=== PATIENT | male | born 1995 | race Caucasian/White ===

== ENCOUNTER 2022-12-17 10:17 | Emergency (ER) | payer SELFPAY ==
[2022-12-17 10:25] VITALS: BP 139/76; PULSE 72; RESP 18; TEMP 36.6; O2SAT 99
--- NOTE | 2022-12-17 10:53 | ED.EXTPRO ---
HPI - Extremity Problem General Chief complaint: Extremity Problem,Nontraumatic Stated complaint: Can't walk in morning Time Seen by Provider: 12/17/22 10:38 Source: patient and RN notes reviewed Mode of arrival: ambulatory Limitations: no limitations History of Present Illness HPI Narrative: 27-year-old male presents with concern for bilateral Achilles pain. He denies injury or trauma. 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 Reports pain is been going on for about a week. He reports it was worse this morning around 3:00 a.m. any had trouble walking because of the pain. He denies any redness, swelling, warmth. Denies any calf redness, swelling, warmth. Reports the pain radiates to the back of his knees occasionally. Reports he has taken Aleve with some relief Complaint: extremity pain Related Data Allergies Allergy/AdvReac Type Severity Reaction Status Date / Time No Known Allergies Allergy Verified 12/17/22 10:37 Review of Systems Review of Systems: CONSTITUTIONAL: Denies malaise, chills, sweats, or fever. CARDIOVASCULAR: Denies chest pain, palpitations, or edema. RESPIRATORY: Denies cough or dyspnea. SKIN: Denies rash or itching, bruising, redness, swelling. MUSCULOSKELETAL: Reports bilateral posterior heel pain NEUROLOGIC: Denies numbness, weakness All systems reviewed & are unremarkable except as noted in HPI and below PMFSH Comments At time of signature, agree with nursing past medical, surgical, social and family history. There is no relevant family history pertinent to the presenting complaint Exam Narrative: GENERAL: Well-appearing, well-nourished, and in no acute distress. HEAD: Normocephalic, atraumatic. EYES: PERRLA, conjunctivae clear NECK: Supple. CHEST: Speaks in full sentences. No respiratory distress. HEART: Regular rate and rhythm. Normal and equal peripheral pulses. EXTREMITIES: Bilateral lower extremities have grossly normal strength and sensation, normal range of motion. No edema or ecchymosis. No open wounds, no skin tenting, no devitalized tissue or atrophy, no trophic changes, no obvious deformity, alignment normal, nearby joints and structures intact. Distal pulses palpable and equal bilaterally, skin warm, dry, pink. Capillary refill less than 3 seconds. SKIN: Warm, dry, no rash. NEURO: Alert and oriented x3. PSYCH: Normal mood and affect Course Course Emergency Course: Patient is aware of diagnosis, understands and agrees to treatment plan. Anticipatory guidance given. Patient agrees to follow-up as directed and is aware of reasons to seek care at the emergency department. Portions of this record may have been created with voice recognition software Level of Care: Express Care Visit Vital Signs Vital signs: Vital Signs Temperature 98 F 12/17/22 10:25 Pulse Rate 72 12/17/22 10:25 Respiratory Rate 18 12/17/22 10:25 Blood Pressure 139/76 12/17/22 10:25 Pulse Oximetry 99 12/17/22 10:25 Oxygen Delivery Room Air 12/17/22 10:25 Temperature 98 F 12/17/22 10:25 Pulse Rate 72 12/17/22 10:25 Respiratory Rate 18 12/17/22 10:25 Blood Pressure 139/76 12/17/22 10:25 Pulse Oximetry 99 12/17/22 10:25 Oxygen Delivery Room Air 12/17/22 10:25 Reviewed. MDM - Extremity (Nontraumatic) MDM Narrative Medical decision making narrative: Patients pain is consistent with musculoskeletal etiology. No signs of neurological or vascular compromise on exam. Compartments and tissues are soft without signs of compartment syndrome. Pain is felt appropriate for further evaluation on an outpatient basis. Critical Care Time Critical Care Time Critical Care Time: No Discharge Plan Discharge Clinical Impression: Achilles tendonitis Patient Disposition: Home, Self-Care Condition: Stable Instructions: Achilles Tendinitis (ED) Additional Instructions: Avoid activities that cause pain until the pain subsides. Do exerci
== END 2022-12-17 11:00 | disposition home or self-care (01) ==
PROVIDERS: Emergency Provider Nurse Practitioner
DX: M76.62 Achilles tendinitis, left leg (principal); M76.61 Achilles tendinitis, right leg
CPT/HCPCS: 99213; G0463